=== PATIENT | male | born 1980 | race African-American/Black ===

== ENCOUNTER 2019-07-10 12:49 | Outpatient (CLI) | payer OTHER, SELFPAY ==
--- NOTE | ~2019-07-10 | US_ITS ---
EXAMINATION: US scrotum doppler EXAM DATE: 07/10/2019 13:16 INDICATION: Left lower quadrant pain, left groin pain, left testicle pain, symptoms one month. TECHNIQUE: Multiple grayscale and Doppler images of the testicles and scrotum were obtained bilateral ly. There is no prior study for comparison. FINDINGS: Right testicle measures 5.0 x 1.8 x 3.0 cm and is morphologically normal. Low resistance Doppler severo w confirmed. The epididymis is unremarkable. Trace hydrocele. Left testicle measures 4.4 x 2.2 x 2.9 cm and is morphologically normal. Low resistance Doppler flow confirmed. The epididymis is unremarkable. Trace hydrocele. IMPRESSION: Trace bilateral hydroceles. Otherwise unremarkable exam. Reviewed, dictated and finalized at location B. [facility]
== END 2019-07-10 12:50 | disposition home or self-care (01) ==
LOC: ANHIMG 12:54
PROVIDERS: PCP Internal Medicine; Visit Provider Nurse Practitioner
DX: R10.32 Left lower quadrant pain (principal); N43.3 Hydrocele, unspecified
CPT/HCPCS: 76870; 93976